=== PATIENT | female | born 1985 | race Two or more races ===

== ENCOUNTER 2016-09-28 19:43 | Emergency (ER) | payer MEDICAID ==
[2016-09-28 19:54] VITALS: BP 130/71
[2016-09-28] MEDS ORDERED: Ketorolac 60 MG/2 ML SDV IM ONE (20:03)
[2016-09-28] MEDS ORDERED: Triamcinolone Acetonide 40 MG/ML 1 ML MDV INJECT ONE (20:03)
--- NOTE | 2016-10-07 10:50 | ER ---
Date of Service: 09/28/2016 SUBJECTIVE: Douglas presents to the emergency room with complaints of throat pain. The patient had a tonsillectomy on Thursday. She was prescribed oxycodone liquid but it upsets her stomach. She states that she is having difficulties with swallowing due to the discomfort. She feels that her throat is swollen, and she is having difficulty with breathing. PAST MEDICAL HISTORY: Recent tonsillectomy. MEDICATIONS: 1. Oxycodone liquid. 2. Flonase nasal spray. ALLERGIES: NKDA. REVIEW OF SYSTEMS: Complains of postsurgical throat pain as well as sensation that her posterior hypopharynx is swollen. She denies any chest pain or significant shortness of breath. PHYSICAL EXAMINATION: General: This is a 31-year-old female patient, who is in no acute distress. Vital Signs: Blood pressure is 130/71, pulse rate is 94, temperature is 35.4, respiratory rate is 16, O2 saturations 97%. Skin: Warm, pink, and dry. HEENT and NECK: Head is normocephalic, atraumatic. Her posterior hypopharynx examination reveals evidence of recent tonsillectomy. There is some postsurgical change but no significant edema noted. She does have some mild anterior cervical lymphadenopathy. Chest: No sternal intercostal retractions noted. Lungs: Clear to auscultation. Heart: Regular rate and rhythm. ASSESSMENT: Post tonsillectomy pain. PLAN: The patient will be discharged. Continue with the oxycodone. She was given an injection of Toradol 60 mg IM and triamcinolone 40 mg IM. She was prescribed viscous lidocaine to help with discomfort. She was given a prescription for Zofran ODT 4 mg every 8 hours as needed for nausea. Continue with ibuprofen in addition to the oxycodone. All questions were answered. MWK: 10/07/2016 08:03:05 MODL: 10/07/2016 10:43:19 /[id number]
== END 2016-09-28 20:18 | disposition home or self-care (01) ==
LOC: VM.ED 19:43
DX: G89.18 Other acute postprocedural pain (principal); Z98.890 Other specified postprocedural states
CPT/HCPCS: 96372; 99283; J1885; J3301